=== PATIENT | female | born 1985 | race Caucasian/White ===

== ENCOUNTER 2016-11-18 17:07 | Emergency (ER) | payer SELFPAY ==
[~2016-11-18] VITALS: Ht 165.1 cm; Wt 95.0 kg
[~2016-11-18 17:07] MED LIST: DOXY100T18 PO; ZOLO50TA PO
[2016-11-18 17:08] VITALS: BP 140/66; PULSE 76; RESP 20; TEMP 98.7; O2SAT 99
[2016-11-18] MEDS ORDERED: PROZ40CA PO (17:36)
[2016-11-18] MEDS ORDERED: GABA100C4 PO (17:36)
--- NOTE | 2016-11-18 17:40 | PD ---
HPI Chief Complaint: Cold / Flu Symptoms Time Seen by Provider: 17:40 Travel History International Travel<30 days: No Contact w/Intl Traveler<30days: No Traveled to known affect area: No History of Present Illness HPI 31-year-old female presents to the emergency Department with complaint of sore throat, fever, chills, body aches 3 days. Reports MAXIMUM TEMPERATURE of 100. something. Denies cough. Reports nasal congestion. Denies chest pain, shortness of breath, abdominal pain, nausea, vomiting. Has taken over-the- counter cold and flu medication with some relief of symptoms. Took 800 mg of ibuprofen prior to arrival with good relief. Allergies to codeine and Phenergan. Has no other medical complaints. No other modifying factors or associated signs and symptoms. PFSH Past Medical History Anxiety: Yes Depression: Yes Diminished Hearing: No Neurologic: Yes (DDD) ?: Unknown : 6 Para: 3 Miscarriage: 2 : 1 Tubal Ligation: Yes Past Surgical History Surgical History: No Previous Surgery Section: Yes (X3) Other Surgery: Yes Social History Alcohol Use: No Tobacco Use: No Substance Use: Yes (IV DILAUDID; quit 4 months ago) Allergies-Medications (Allergen,Severity, Reaction): Coded Allergies: Codeine (Verified Allergy, Severe, RASH, 11/18/16) PT STATES NOT ALLERGIC TO CODEINE. Phenergan (Verified Adverse Reaction, Severe, NAUSEA AND VOMITING, 11/18/16) PATIENT STATES SHE IS NOT ALLERGIC Reported Meds & Prescriptions Reported Meds & Active Scripts Active Reported Gabapentin 100 Mg Cap 100 Mg PO TID PRN Prozac (Fluoxetine HCl) 40 Mg Cap 40 Mg PO DAILY Review of Systems Except as stated in HPI: all other systems reviewed are Neg Physical Exam Narrative GENERAL: Well-nourished, well-developed female patient, in no acute distress; afebrile, nontoxic-appearing SKIN: Warm and dry. No rash. HEAD: Atraumatic. Normocephalic. EYES: Pupils equal and round at 3 mm with brisk reaction. No scleral icterus. No injection or drainage. PERRLA. ENT: Mucosa pink and moist. Oropharynx with erythema; without exudate or edema. No uvular edema. No uvular, palatal, or tonsillar deviation. Airway patent. EARS: Bilateral pinnae and external canals appear within normal limits. Bilateral tympanic membranes without erythema, dullness or perforation. NECK: Trachea midline. No lymphadenopathy. CARDIOVASCULAR: Regular rate and rhythm. No murmur appreciated. RESPIRATORY: No accessory muscle use. Clear to auscultation. Breath sounds equal bilaterally. GASTROINTESTINAL: Abdomen soft, non-tender, nondistended. Hepatic and splenic margins not palpable. Bowel sounds are active 4 quadrants. MUSCULOSKELETAL: No obvious deformities. No clubbing. No cyanosis. No edema. NEUROLOGICAL: Awake and alert. Oriented 3. No obvious cranial nerve deficits. Motor grossly within normal limits. Normal speech. Moves all extremities. 5/5 strength to all extremities. PSYCHIATRIC: Appropriate mood and affect; insight and judgment normal. Data Data Last Documented VS Vital Signs Date Time Temp Pulse Resp B/P Pulse Ox O2 Delivery O2 Flow Rate FiO2 11/18/16 17:08 98.7 76 20 140/66 99 Room Air Orders Influenzae A/B Antigen (11/18/16 17:40) Group A Rapid Strep Screen (11/18/16 17:40) Strep Culture (Group A) (11/18/16 17:40) MDM Medical Decision Making Medical Screen Exam Complete: Yes Emergency Medical Condition: Yes Medical Record Reviewed: Yes Differential Diagnosis Influenza, strep pharyngitis, URI Narrative Course 31-year-old female with cold/flu symptoms and complaint of sore throat. Patient is afebrile and nontoxic-appearing. Reports MAXIMUM TEMPERATURE of 100 point something. Patient took ibuprofen prior to arrival. Rapid strep and influenza ordered. 1828: Influenza and rapid strep negative. Will treat patient with antibiotics for suspected upper respiratory infection. Azithromycin, Nasonex nasal spray and ibuprofen prescribed for home. Patient verbalizes understanding and agreement with treatment plan. Patient is medically cleared and stable for discharge. Discussed reasons to return to the emergency department. Instructed patient to follow up with primary care provider. Patient agrees with treatment plan. The patients vital signs are stable and the patient is stable for outpatient follow-up and treatment. Patient discharged home, stable and in no acute distress. Diagnosis Primary Impression: Upper respiratory infection Qualified Code: J06.9 - Upper respiratory tract infection, unspecified type Referrals: Primary Care Physician Patient Instructions: General Instructions, Upper Respiratory Infection (ED) Departure Forms: Tests/Procedures, Work Release Enter return to work date: November 20, 2016 Additional Instructions: Antibiotics as prescribed and complete full course Ibuprofen or Tylenol as instructed and as needed for fever/pain [id number] cough and cold medications as directed and as needed for symptom management Get plenty of sleep/rest Drink plenty of fluids to prevent dehydration; popsicles and Gatorade Use an air humidifier/turn off ceiling fans Follow-up with primary care provider Return immediately to the emergency department with worsening of symptoms Med/Other Pt SpecificInfo: Prescription(s) given Scripts Ibuprofen 800 Mg [id number] Mg PO Q6HR PRN (PAIN) #30 TAB Ref 0 Prov:Bebe Sanchez 11/18/16 Mometasone Nasal Sizerock (Nasonex Nasal Sizerock)50 Mcg/Act Naspr2 Sizerock EACH NARE DAILY PRN (NASAL CONGESTION) #1 BOTTLE Ref 0 Prov:Bebe Sanchez 11/18/16 Azithromycin 500 Mg [id number] Mg PO DAILY #5 TAB Ref 0 Prov:Bebe Sanchez 11/18/16 Disposition: 01 DISCHARGE HOME Condition: Stable Bebe Sanchez November 18, 2016 17:40
[2016-11-18] MEDS ORDERED: MOME17I EACH NARE (18:27)
[2016-11-18] MEDS ORDERED: AZIT500T2 PO (18:27)
[2016-11-18] MEDS ORDERED: IBUP800T23 PO (18:27)
== END 2016-11-18 18:39 | disposition home or self-care (01) ==
LOC: NEPK 17:07
DX: J06.9 Acute upper respiratory infection, unspecified (principal); R50.9 Fever, unspecified
CPT/HCPCS: 87081; 87804; 87880; 99283